=== PATIENT | male | born 1965 | race Caucasian/White ===

== ENCOUNTER 2017-09-19 12:00 | Emergency (ER) | payer OTHER ==
[~2017-09-19] VITALS: Ht 162.6 cm; Wt 63.0 kg
[2017-09-19 12:11] VITALS: BP 116/78
[2017-09-19] MEDS ORDERED: PROPARACAINE OPHTH 0.5%, 15ML ONE (12:22)
[2017-09-19] MEDS ORDERED: predniSOLONE OPHTH SUSP 1%, 5ML RIGHTEYE ONE (13:30)
[2017-09-19] MEDS ORDERED: CYCLOPENTOLATE OPHTH SOLN 1%, 15ML RIGHTEYE ONE (13:30)
== END 2017-09-19 14:19 | disposition home or self-care (01) ==
LOC: ED 14:13
DX: H20.00 Unspecified acute and subacute iridocyclitis (principal)
CPT/HCPCS: 99283